=== PATIENT | male | born 1970 | race Caucasian/White ===

== ENCOUNTER 2020-03-19 08:45 | Outpatient (CLI) | payer OTHER, SELFPAY | END 2020-03-19 23:59 | disposition home or self-care (01) | LOC: MLB 08:45 → EDSTATUS 03-28 09:56 | PROVIDERS: ATTEND Internal Medicine Gastroenterology | DX: Z01.812 Encounter for preprocedural laboratory examination (principal); Z86.010 Personal history of colon polyps; Z20.828 Contact with and (suspected) exposure to other viral communicable diseases | CPT/HCPCS: U0003 ==